=== PATIENT | male | born 1970 | race Caucasian/White ===

== ENCOUNTER 2023-11-08 14:00 | Outpatient (CLI) | payer MEDICARE | END 2023-11-08 14:01 | disposition home or self-care (01) | LOC: BICULT 14:00 | PROVIDERS: ATTEND Family Medicine | DX: Z87.442 Personal history of urinary calculi (principal); N28.1 Cyst of kidney, acquired; N28.9 Disorder of kidney and ureter, unspecified | CPT/HCPCS: 76770 ==

== ENCOUNTER 2023-11-15 12:51 | Outpatient (CLI) | payer MEDICARE | END 2023-11-15 12:52 | disposition home or self-care (01) | LOC: BICCT 12:51 | PROVIDERS: ATTEND Family Medicine | DX: Z12.2 Encounter for screening for malignant neoplasm of respiratory organs (principal); Z87.891 Personal history of nicotine dependence | CPT/HCPCS: 71271 ==

== ENCOUNTER 2024-06-05 07:55 | Outpatient (CLI) | payer MEDICARE ==
[2024-06-05] MEDS ORDERED: Iopamidol 370 76% 100 ML VIAL ONE (14:34)
== END 2024-06-05 07:56 | disposition home or self-care (01) ==
LOC: CT 07:55
PROVIDERS: ATTEND Internal Medicine Nephrology
DX: N28.1 Cyst of kidney, acquired (principal); Q60.0 Renal agenesis, unilateral; N20.0 Calculus of kidney; K76.9 Liver disease, unspecified
CPT/HCPCS: 36415; 74170; 82565

== ENCOUNTER 2024-11-27 10:07 | Outpatient (CLI) | payer MEDICARE ==
[2024-11-27] MEDS ORDERED: Iopamidol 370 76% 100 ML VIAL ONE (11:37)
== END 2024-11-27 10:08 | disposition home or self-care (01) ==
LOC: CT 10:07
PROVIDERS: ATTEND Urology
DX: N28.1 Cyst of kidney, acquired (principal); N20.0 Calculus of kidney; Z90.5 Acquired absence of kidney
CPT/HCPCS: 74170; Q9967